=== PATIENT | male | born 1960 | race Caucasian/White ===

== ENCOUNTER 2019-11-03 16:15 | Emergency (ER) | payer BC, SELFPAY ==
[2019-11-03 16:26] VITALS: BP 144/92; PULSE 108; RESP 18; TEMP 38; O2SAT 96
--- NOTE | 2019-11-03 16:43 | ED.URI ---
HPI - URI/Sore Throat General Chief Complaint: Upper Respiratory Infection Stated Complaint: Congestion Time Seen by Provider: 11/03/19 16:43 Source: patient Mode of arrival: ambulatory Limitations: no limitations History of Present Illness HPI Narrative: The patient, who is a nonsmoker/ occ drinker, presents with history of upper respiratory Sx that began last night. Pt notes having a fever of 100.4F, nasal and sinus congestion, and ear pressure. No cough, wheeze, precordial chest pain, shortness of breath, hand or leg swelling. He states that his was Dx with influenza B x 1 week ago. He notes taking OTC medication which helped him to sleep, but his Sx are not improving. MD elicited complaint: fever (100.4F) Onset (ago): day(s) (1) Consistency: progressively worsening Context: sick contacts ( Dx with influenza B) Associated symptoms: nasal congestion and other (sinus congestion, ear pressure) Treatments prior to arrival: cold medicine (OTC) Related Data Allergies Allergy/AdvReac Type Severity Reaction Status Date / Time hydrocodone AdvReac Unknown nausea Verified 11/03/19 16:30 Review of Systems Review of Systems: Narrative: The patient has been informed that they may have pre-hypertension or Hypertension based on a BP reading in the department. I recommend that the patient call the primary care provider listed on their discharge instructions or a physician of their choice this week to arrange follow up for further evaluation of possible pre-hypertension or Hypertension General/Constitutional: Denies: weight loss Eyes: Denies: Redness,discharge Ears/Nose/Throat: Denies: Epistaxis,ear discharge Respiratory: Denies: Hemoptysis Gastrointestinal: Denies: Vomiting, Bleeding-rectal Skin: Denies: Lumps, eruption Neurologic: Denies: Focal Weakness,Sz Hematologic: Denies: Petechiae/Purpura Psychiatric: Denies: Suicidal ideation All Other Systems: Reviewed and Negative All systems reviewed & are unremarkable except as noted in HPI and below [facility] Family History Family History (Updated 11/27/14 @ 16:56 by DOCTOR UNKNOWN) Father Patient's father is Mother Patient's mother is Other Diabetes mellitus Hypertension Social History Social History Smoking status: Never smoker Second hand tobacco smoke exposure: No Alcohol intake: current Comments At time of signature, agree with nursing past medical, surgical, social and family history. There is no relevant family history pertinent to the presenting complaint. Exam Narrative: Exam Narrative: General Appearance: Well appearing, Well nourished EYE: PERRLA, Conjunctiva clear Ears: Auditory canal normal, TM normal Nose: Rhinorrhea, Mucousal erythema Mouth/Throat: MM moist, Uvula midline, Pharyngeal erythema Neck: Supple, No adenopathy Respiratory: No respiratory distress, Breath sounds equal, Clear to auscultation Cardiovascular: RRR, No JVD Musculoskeletal: Non tender, Normal strength Skin: Warm, Dry Neurological: A&O x3, CN II-XII intact Psychiatric: Normal mood, Normal affect Course Vital Signs Vital signs: Vital Signs Temperature 100.4 F H 11/03/19 16:26 Pulse Rate 108 H 11/03/19 16:26 Respiratory Rate 18 11/03/19 16:26 Blood Pressure 144/92 H 11/03/19 16:26 Pulse Oximetry 96 11/03/19 16:26 Temperature 100.4 F H 11/03/19 16:26 Pulse Rate 108 H 11/03/19 16:26 Respiratory Rate 18 11/03/19 16:26 Blood Pressure 144/92 H 11/03/19 16:26 Pulse Oximetry 96 11/03/19 16:26 MDM - URI/Sore Throat Lab Data Labs: Influenza A Screen Negative Reference Range: Negative Influenza B Screen Negative Reference Range: Negative Discharge Plan Discharge Clinical Impression: Influenza-like illness Patient Disposition: Home, Self-Care Condition: Stable Instructions: Influenza (ED) Prescriptions: New
== END 2019-11-03 16:55 | disposition home or self-care (01) ==
PROVIDERS: Emergency Provider Emergency Medicine; PCP Internal Medicine
DX: R50.9 Fever, unspecified (principal); J34.89 Other specified disorders of nose and nasal sinuses
CPT/HCPCS: 87804; 99213; G0463

== ENCOUNTER 2020-03-04 08:11 | Outpatient (CLI) | payer BC, SELFPAY ==
[2020-03-04 08:38] LABS: Basophils Percent Auto 0.5 % (0.2-1.2); Eosinophils Absolute Auto 0.2 K/mm3 (0-0.3); Eosinophils Percent Auto 2.8 % (0-4.4); Hematocrit 39.1 % (42.0-52.0); Hemoglobin 13.8 g/dL (14.0-18.0); Immature Granulocyte Absolute 0.01 K/mm3 (0.00-0.031); Immature Granulocyte Percent A 0.2 % (0-0.5); Lymphocytes Absolute Auto 1.31 K/mm3 (0.9-3.2); Lymphocytes Percent Auto 22.8 % (18.3-44.2); Mean Corpuscular HGB Conc 35.3 g/dl (32-36); Mean Corpuscular Hemoglobin 32.9 pg (26-34); Mean Corpuscular Volume 93.1 fl (80-100); Mean Platelet Volume 8.8 fl (7.4-10.4); Monocytes Absolute Auto 0.7 K/mm3 (0.1-0.6); Monocytes Percent Auto 11.7 % (2.6-8.5); Neutrophils Absolute Auto 3.6 K/mm3 (1.3-6.7); Platelet Count Result 286 k/mm3 (150-375); Red Cell Distribution Width 11.9 % (11.5-14.5); White Blood Count 5.8 K/mm3 (4.5-10.0)
[2020-03-04 08:48] LABS: Alanine Aminotransferase 22 U/L (4-50); Albumin Level 4.4 g/dL (3.5-5.1); Alkaline Phosphatase 76 U/L (38-126); Aspartate Amino Transferase 33 U/L (17-59); Bilirubin,Total 0.7 mg/dL (0.2-1.3); Blood Urea Nitrogen 7 mg/dL (9-20); Calcium 9.3 mg/dL (8.4-10.2); Carbon Dioxide 29 mmol/L (22-30); Chloride 104 mmol/L (98-107); Cholesterol 164 mg/dL (0-200); Estimated Glomerular Filt Rate > 60; Glucose 96 mg/dL (75-110); HDL Direct 53 mg/dL; Sodium 139 mmol/L (137-145); Triglycerides 70 mg/dL (<150)
[2020-03-04 08:59] LABS: LDL Cholesterol Direct 84 mg/dL
[2020-03-04 09:18] LABS: Prostate Specific Antigen 0.5 ng/mL (< OR = 4.0)
== END 2020-03-04 08:12 | disposition home or self-care (01) ==
PROVIDERS: PCP Internal Medicine; Visit Provider Internal Medicine
DX: Z00.00 Encounter for general adult medical examination without abnormal findings (principal)
CPT/HCPCS: 36415; 80053; 80061; 84153; 84443; 85025

== ENCOUNTER 2020-05-23 14:15 | Outpatient (CLI) | payer BC, SELFPAY ==
[2020-05-23 14:53] LABS: Basophils Percent Auto 0.5 % (0.2-1.2); Eosinophils Absolute Auto 0.1 K/mm3 (0-0.3); Eosinophils Percent Auto 2.2 % (0-4.4); Hematocrit 40.4 % (42.0-52.0); Hemoglobin 14.3 g/dL (14.0-18.0); Immature Granulocyte Absolute 0.02 K/mm3 (0.00-0.031); Immature Granulocyte Percent A 0.3 % (0-0.5); Lymphocytes Absolute Auto 1.54 K/mm3 (0.9-3.2); Lymphocytes Percent Auto 26.1 % (18.3-44.2); Mean Corpuscular HGB Conc 35.4 g/dl (32-36); Mean Corpuscular Hemoglobin 33.6 pg (26-34); Mean Corpuscular Volume 94.8 fl (80-100); Mean Platelet Volume 8.9 fl (7.4-10.4); Monocytes Absolute Auto 0.6 K/mm3 (0.1-0.6); Neutrophils Absolute Auto 3.6 K/mm3 (1.3-6.7); Neutrophils Percent Auto 60.9 % (45.5-73.1); Platelet Count Result 293 k/mm3 (150-375); Red Blood Count 4.26 M/mm3 (4.6-6.20); Red Cell Distribution Width 11.7 % (11.5-14.5); White Blood Count 5.9 K/mm3 (4.5-10.0)
[2020-05-23 15:39] LABS: Iron 106 ug/dL (49-181)
[2020-05-23 15:49] LABS: Percent Iron Saturation 34 % (20-50)
[2020-05-23 16:21] LABS: Folic Acid > 20.0 ng/mL (2.76->20); Vitamin B12 > 1000.0 pg/mL (239-931)
== END 2020-05-23 14:16 | disposition home or self-care (01) ==
PROVIDERS: PCP Internal Medicine; Visit Provider Internal Medicine
DX: D64.9 Anemia, unspecified (principal)
CPT/HCPCS: 36415; 82607; 82746; 83540; 83550; 85025

== ENCOUNTER 2020-06-03 08:16 | Outpatient (CLI) | payer BC, SELFPAY ==
--- NOTE | 2020-06-30 09:14 | WPDHOMESLEEP ---
Sleep Study - Home Unattended Date of Study: 06/03/20 Ordering Provider: Fernanda Rodriguez MD Interpreting Physician: Fernanda Rodriguez MD Home Sleep Study Type: Apnea Link Air Height: 1.78 m Weight: 76.657 kg Body Mass Index: 24.2 [place]: 0 Reason for Sleep Study History of obstructive sleep apnea syndrome on CPAP, weight loss, re-evaluation Sleep History Serafin Bolton is a 60 year old man with a history of loud snoring. He has been treated for sleep apnea for 15 years. For the first 5 or 6 years, he used an oral appliance. Since then, he has been on CPAP. Since August of 2019 he has lost 50 lb. Since the weight loss, his APAP does not work as effectively. He is having difficulty with the head strap which only works well for 1 for 2 weeks. His mouth is opening at night and the chinstrap is somehow making things worse. He has chronic rhinitis. He is on an auto PAP 7-15 cm with a median pressure of 8 cm of water pressure. He wants to be re-evaluated and considered for an oral appliance again. He constantly snores and is constantly loud enough that others complain about it. He occasionally has trouble sleeping with a cold. He rarely gasps for breath at night. He occasionally has breathing problems at night observed by others. He does not sweat excessively at night, does not notice his heart pounding or beating irregularly at night, does not fall asleep during the day, does not fall asleep involuntarily or while driving. He does not fall asleep during physical effort. He does not have loss of muscle tone was strong emotion, does not have daytime difficulties due to excessive sleepiness, does not feel paralyzed on waking or falling asleep and does not have vivid dreamlike scenes upon awakening or falling asleep. He is never afraid to go to sleep. He does not have nightmares. He occasionally remembers his dreams. He rarely has racing thoughts. He does not have feelings of sadness, depression or anxiety. He denies muscular tension. He does not notice parts of his body jerking. He does not kick at night. He does not have crawly aching feelings in his legs and does not have leg pain at night. He does not have morning jaw pain and does not grind his teeth during sleep. He does not have pain during the day or is awakened by pain at night. He does not wake up feeling stiff in the morning with sore muscles. He has headaches. Normal bedtime is between 10:00 p.m. to 10:30 p.m., midnight on weekends, falling asleep quickly waking at 5:30 a.m. without using an alarm. He wakes once at night to urinate, falls asleep within 2 minutes when he returns to bed. He does not have problems with leg movements or irritable feelings in his legs at night. He is not always refreshed in the morning. He drinks 2 pots of coffee a day and has done so for decades. He does not nap in the daytime. A short nap is not refreshing. He is currently working from home, previously traveled around the world for his and job. [facility] Past Medical History Medical History CRISTIAN on CPAP Surgical History Surgical History History of carpal tunnel repair Family History Family History Father Patient's father is Mother Patient's mother is Other Diabetes mellitus Hypertension Social History Social History Smoking status: Never smoker Second hand tobacco smoke exposure: No Alcohol intake: current Substance use: never Medications Home Medications Medication Instructions Recorded Confirmed Type No Home Medications 02/27/20 02/27/20 History Sleep Procedure This test was performed using 4 channel monitoring including respiratory effort channel snoring channel heart rate channel and oxygen satura
[2020-06-30 09:18] VITALS: BMI 24.2
== END 2020-06-03 08:17 | disposition home or self-care (01) ==
LOC: ANHCSM 08:18
PROVIDERS: PCP Internal Medicine; Visit Provider Internal Medicine Critical Care Medicine
DX: G47.33 Obstructive sleep apnea (adult) (pediatric) (principal); Z99.89 Dependence on other enabling machines and devices
CPT/HCPCS: 95806

== ENCOUNTER 2022-05-05 09:28 | Outpatient (CLI) | payer BC, SELFPAY ==
[2022-05-05 09:43] LABS: Basophils Percent Auto 0.6 % (0.2-1.2); Eosinophils Absolute Auto 0.2 K/mm3 (0-0.3); Eosinophils Percent Auto 2.8 % (0-4.4); Hematocrit 43.2 % (42.0-52.0); Hemoglobin 15.2 g/dL (14.0-18.0); Immature Granulocyte Absolute 0.01 K/mm3 (0.00-0.031); Immature Granulocyte Percent A 0.2 % (0-0.5); Lymphocytes Absolute Auto 1.84 K/mm3 (0.9-3.2); Lymphocytes Percent Auto 29.8 % (18.3-44.2); Mean Corpuscular HGB Conc 35.2 g/dl (32-36); Mean Corpuscular Volume 90.9 fl (80-100); Mean Platelet Volume 8.5 fl (7.4-10.4); Monocytes Absolute Auto 0.7 K/mm3 (0.1-0.6); Monocytes Percent Auto 11.5 % (2.6-8.5); Neutrophils Absolute Auto 3.4 K/mm3 (1.3-6.7); Neutrophils Percent Auto 55.1 % (45.5-73.1); Platelet Count Result 320 k/mm3 (150-375); Red Blood Count 4.75 M/mm3 (4.6-6.20); Red Cell Distribution Width 11.6 % (11.5-14.5); White Blood Count 6.2 K/mm3 (4.5-10.0)
[2022-05-05 10:05] LABS: Alanine Aminotransferase 40 U/L (6-50); Albumin Level 4.6 g/dL (3.5-5.1); Alkaline Phosphatase 57 U/L (38-126); Anion Gap 11 mmol/L (8-16); Aspartate Amino Transferase 41 U/L (17-59); Bilirubin,Total 1.1 mg/dL (0.2-1.3); Blood Urea Nitrogen 11 mg/dL (9-20); Calcium 9.2 mg/dL (8.4-10.2); Carbon Dioxide 24 mmol/L (22-30); Chloride 104 mmol/L (98-107); Cholesterol 226 mg/dL (0-200); Estimated Glomerular Filt Rate > 60; Glucose 107 mg/dL (65-110); HDL Direct 38 mg/dL; Potassium 3.9 mmol/L (3.4-5.0); Sodium 139 mmol/L (137-145); Triglycerides 140 mg/dL (<150)
[2022-05-05 10:16] LABS: LDL Cholesterol Direct 131 mg/dL
[2022-05-05 10:31] LABS: Prostate Specific Antigen 0.9 ng/mL (< OR = 4.0)
[2022-05-05 11:16] LABS: Folic Acid > 20.0 ng/mL (2.76->20); Vitamin B12 > 1000.0 pg/mL (239-931)
== END 2022-05-05 09:29 | disposition home or self-care (01) ==
PROVIDERS: PCP Internal Medicine; Visit Provider Internal Medicine
DX: R74.8 Abnormal levels of other serum enzymes (principal); R53.83 Other fatigue
CPT/HCPCS: 36415; 80053; 80061; 82607; 82746; 84153; 84443; 85025; G0103

== ENCOUNTER 2022-08-10 08:22 | Outpatient (CLI) | payer BC, SELFPAY ==
[2022-08-14 14:02] LABS: Prolactin 4.2 ng/mL (***)
[2022-08-20 15:17] LABS: Testosterone Free 81.5 pg/mL (35.0-155.0); Testosterone Total 586 ng/dL (250-1100)
== END 2022-08-10 08:23 | disposition home or self-care (01) ==
LOC: ANHLAB 08:23
PROVIDERS: PCP Internal Medicine; Visit Provider Internal Medicine
DX: N52.9 Male erectile dysfunction, unspecified (principal)
CPT/HCPCS: 36415; 84146; 84402; 84403

== ENCOUNTER 2023-11-23 17:19 | Outpatient (CLI) | payer BC, SELFPAY ==
--- NOTE | ~2023-11-23 | XR_ITS ---
EXAMINATION: XR shoulder RT min 2V DATE: 11/23/2023 17:49 INDICATION: Right shoulder pain and limited range of motion TECHNIQUE: AP internally and externally rotated, AP oblique externally rotated and transscapular Y vi ews of the right shoulder were obtained. COMPARISON: None FINDINGS: Normal alignment. No fracture. Mild right glenohumeral and acromioclavicular osteoarthritis. There i s a poorly defined lucent lesion in the proximal right humeral diaphysis with suggestion of possible endosteal scalloping on the internally rotated projection. Mild cystic change at the right greater tu berosity which can be seen in the setting of rotator cuff disease. Soft tissues are unremarkable. Vis ualized portion of the lungs are clear. IMPRESSION: 1. Mild right glenohumeral and acromioclavicular osteoarthritis. No acute osseous abnormalities. 2. Possible lytic lesion at the proximal right humeral diaphysis. Differential would include malignan cy/metastatic disease or artifactual appearance as by the osteopenia. Consider further evaluation wit h either CT or pre and postcontrast MRI. Reviewed, dictated and finalized at location A. IMPRESSION: 1. Mild right glenohumeral and acromioclavicular osteoarthritis. No acute osseo us abnormalities. 2. Possible lytic lesion at the proximal right humeral diaphysis. Differential would include malignancy/metastatic disease or artifactual appearance as by the osteopenia. Consider further evaluation with either CT or pre and postcontrast MRI.
== END 2023-11-23 17:20 | disposition home or self-care (01) ==
LOC: ANHIMG 17:22
PROVIDERS: PCP Internal Medicine; Visit Provider Internal Medicine
DX: M19.011 Primary osteoarthritis, right shoulder (principal)
CPT/HCPCS: 73030

== ENCOUNTER 2023-12-15 16:01 | Outpatient (CLI) | payer BC, SELFPAY ==
--- NOTE | ~2023-12-15 | CT_ITS ---
EXAMINATION: CT shoulder RT wo con DATE: 12/15/2023 16:24 INDICATION: Possible lytic lesion at the proximal right humeral diaphysis on prior radiographs TECHNIQUE: High resolution computed tomography (CT) of the right shoulder was performed without intra venous contrast. Additional sagittal and coronal reconstructions were performed. Automated exposure c ontrol and iterative reconstruction technique were employed. The dose-length product was 318.35 mGy-c m. COMPARISON: Right shoulder radiographs dated 11/23/2023 FINDINGS: Bone alignment is normal. No fracture. There is mild right glenohumeral and acromioclavicular osteoar thritis. Fluid is seen in the deep subscapular recess. Otherwise physiologic amount of fluid in the g lenohumeral joint space. There is mild cystic change along the superior facet of the greater tuberosi ty which can be seen in setting of chronic rotator cuff disease. The region of relative cortical thin tavo along the anteromedial cortex of the proximal humeral diaphysis is identified but appears to res ult more from the region of sparing of the cortical thinning at the sites of muscular insertion as op posed to a discrete region of lytic endosteal scalloping. There is no evident underlying increased de nsity of the normal low attenuation fatty marrow to suggest a pathologic marrow replacing process. Mi ld dependent atelectasis in the visualized right lung. No pathologically enlarged right axillary, rig ht hilar or right-sided mediastinal lymphadenopathy. IMPRESSION: 1. The region of suspected potential endosteal scalloping along the proximal right humeral diaphysis appears to represent artifact of relative sparing of adjacent physiologic cortical thickening at the sites of muscular attachment. No increased marrow density to suggest malignancy/metastatic disease or other underlying pathologic marrow replacing process. 2. Mild right glenohumeral and acromioclavicular osteoarthritis. 3. Mild cystic change along the superior facet of the greater tuberosity which can be seen in the set ting of chronic supraspinatus tendon disease. Reviewed, dictated and finalized at location A. IMPRESSION: 1. The region of suspected potential endosteal scalloping along the proximal ri ght humeral diaphysis appears to represent artifact of relative sparing of dorota cent physiologic cortical thickening at the sites of muscular attachment. No in creased marrow density to suggest malignancy/metastatic disease or other underl daniele pathologic marrow replacing process. 2. Mild right glenohumeral and acromioclavicular osteoarthritis. 3. Mild cystic change along the superior facet of the greater tuberosity which can be seen in the setting of chronic supraspinatus tendon disease.
== END 2023-12-15 16:02 | disposition home or self-care (01) ==
LOC: ANHIMG 16:03
PROVIDERS: PCP Internal Medicine; Visit Provider Internal Medicine
DX: R93.89 Abnormal findings on diagnostic imaging of other specified body structures (principal); M19.011 Primary osteoarthritis, right shoulder
CPT/HCPCS: 73200

== ENCOUNTER 2024-03-14 10:12 | Outpatient (CLI) | payer BC, SELFPAY ==
[2024-03-14 11:02] LABS: Basophils Percent Auto 0.5 % (0.2-1.2); Eosinophils Absolute Auto 0.1 K/mm3 (0-0.3); Hematocrit 43.9 % (42.0-52.0); Hemoglobin 15.6 g/dL (14.0-18.0); Immature Granulocyte Absolute 0.01 K/mm3 (0.00-0.031); Immature Granulocyte Percent A 0.2 % (0-0.5); Lymphocytes Absolute Auto 1.71 K/mm3 (0.9-3.2); Lymphocytes Percent Auto 26.1 % (18.3-44.2); Mean Corpuscular HGB Conc 35.5 g/dl (32-36); Mean Corpuscular Hemoglobin 33.1 pg (26-34); Mean Platelet Volume 8.7 fl (7.4-10.4); Monocytes Absolute Auto 0.7 K/mm3 (0.1-0.6); Monocytes Percent Auto 10.6 % (2.6-8.5); Neutrophils Percent Auto 60.6 % (45.5-73.1); Platelet Count Result 302 k/mm3 (150-375); Red Blood Count 4.72 M/mm3 (4.6-6.20); Red Cell Distribution Width 11.8 % (11.5-14.5); White Blood Count 6.5 K/mm3 (4.5-10.0)
[2024-03-14 11:19] LABS: Alanine Aminotransferase 44 U/L (6-50); Albumin Level 4.8 g/dL (3.5-5.1); Alkaline Phosphatase 57 U/L (38-126); Anion Gap 9 mmol/L (4-12); Aspartate Amino Transferase 38 U/L (17-59); Bilirubin,Total 0.9 mg/dL (0.2-1.3); Blood Urea Nitrogen 12 mg/dL (9-20); Calcium 9.2 mg/dL (8.4-10.2); Carbon Dioxide 26 mmol/L (22-30); Chloride 102 mmol/L (98-107); Cholesterol 228 mg/dL (0-200); Estimated Glomerular Filt Rate > 60; Glucose 111 mg/dL (65-110); HDL Direct 40 mg/dL; Potassium 4.3 mmol/L (3.4-5.0); Sodium 137 mmol/L (137-145); Triglycerides 164 mg/dL (<150)
[2024-03-14 11:30] LABS: LDL Cholesterol Direct 139 mg/dL
[2024-03-14 12:02] LABS: Prostate Specific Antigen 0.5 ng/mL (< OR = 4.0)
== END 2024-03-14 10:13 | disposition home or self-care (01) ==
PROVIDERS: PCP Internal Medicine; Visit Provider Internal Medicine
DX: Z00.00 Encounter for general adult medical examination without abnormal findings (principal); Z12.5 Encounter for screening for malignant neoplasm of prostate
CPT/HCPCS: 36415; 80053; 80061; 84153; 84443; 85025; G0103

== ENCOUNTER 2024-11-15 13:29 | Outpatient (CLI) | payer BC, SELFPAY ==
--- NOTE | ~2024-11-15 | US_ITS ---
EXAMINATION: US arterial duplex E DATE: 11/15/2024 14:17 INDICATION: Essential primary hypertension with discordant brachial artery pressures reportedly great er on the right. TECHNIQUE: Multiple grayscale and Doppler ultrasound images of the arteries of the arteries of the bi lateral upper limbs were obtained. COMPARISON: None FINDINGS: Normal triphasic waveforms with brisk systolic upstrokes throughout the right common carotid, subclav katy, axillary, brachial, radial and ulnar arteries. Normal triphasic waveforms with brisk systolic up strokes throughout the left common carotid, subclavian, axillary, brachial, radial and ulnar arteries . No evident hematoma significant plaque identified in the visualized portion of the arteries in eith er upper limb. IMPRESSION: 1. Normal triphasic waveforms with brisk systolic upstrokes and without evident hemodynamically signi ficant plaque in the arteries of either upper limb. Reviewed, dictated and finalized at location B. IMPRESSION: 1. Normal triphasic waveforms with brisk systolic upstrokes and without evident hemodynamically significant plaque in the arteries of either upper limb.
--- OUTSIDE RECORDS SUMMARY | 2024-11-15 14:20 | XMS_ITS | Referral Summary ---
Author Organization [facility] [address] Address [address] [place] [address] Care Team Providers Care Data Input Clerk Name Role Phone Martin Henriquez MD Primary Care Provider [phone] Encounters Date Type Department Care Team Description 10/08/2024 Documentation [facility] Otolaryngology [address] [facility] [address] [place] [address] Anastacia Washburn Au.D. 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 Gender Identity Not on file Sexual Orientation Not on file Last Filed Vital Signs Vital Sign Reading Time Taken Comments Blood Pressure - - Pulse - - Temperature - - Respiratory Rate - - Oxygen Saturation - - Inhaled Oxygen Concentration - - Weight 88 kg (194 lb 0.1 oz) 09/21/2017 11:14 AM REPAIR DEPARTMENT MANAGER Height 177.8 cm (5' 10 ) 09/21/2017 11:14 AM REPAIR DEPARTMENT MANAGER Body Mass Index 27.84 09/21/2017 11:14 AM REPAIR DEPARTMENT MANAGER Plan of Treatment Not on file Insurance [employer] OOS Care Teams Data Input Clerk Relationship Specialty Start Date End Date Martin Henriquez MD [address] [place] [address] PCP - General 12/10/16
--- OUTSIDE RECORDS SUMMARY | 2024-11-15 14:20 | XMS_ITS | Encounter Summary ---
Author Organization [facility] Address [address] [place] [address] Care Team Providers Care Marble Setter Helper Name Role Phone Martin Henriquez Primary Care Provider [phone] Keyon Curtis MD Unavailable [phone] Encounter Details Date Type Department Care Team (Late st Contact Info) Description 04/11/2024 Lab Requisition [facility] - DermPath Lab [address] [facility] [facility] [place] [id number] Keyon Curtis MD [address] [place] [address] Social History Tobacco Use Types Packs/Day Years Used Date Smoking Tobacco: Never Smokeless Tobacco: Never Alcohol Use Standard Drinks/Week Comments Yes 0 (1 standard drink = 0.6 oz pur e alcohol) 1-2 beers or glass of wine occ Sex and Gender Information Value Date Recorded Sex Assigned at Not on file Gender Identity Not on file Sexual Orientation Not on file documented as of this encounter Plan of Treatment Not on file documented as of this encounter Procedures Procedure Name Priority Date/Time Associated Diagnosis Comments DERMATOPATHOLOGY Routine 04/10/2024 3:33 AM CDT documented in this encounter Results * DERMATOPATHOLOGY (04/10/2024 3:33 AM CDT) Case Report Dermatopathology Report Case: [id number] Authorizing Provider: Keyon Curtis MD Collected: 04/10/2024 03:33 AM Ordering Location: [facility] - Received: 04/11/2024 01:55 PM DermPath Lab Pathologist: Misael Gibson MD Specimen: Skin, right ala 2:07 PM CDT DERMATOPATHOLOGY LABORATORY Final Diagnosis Specimen A. SKIN, right ala: BASAL CELL CARCINOMA (C44.311) (see microscopic description and comment) 2:07 PM CDT DERMATOPATHOLOGY LABORATORY Clinical History R/O BCC recurrence 2:07 PM CDT DERMATOPATHOLOGY LABORATORY Gross Description Specimen A: Received is one formalin filled container labeled with the patient's name and designated right ala. The specimen consists of a shave biopsy measuring 4x4x1 mm. Jar 0. 2:07 PM CDT DERMATOPATHOLOGY LABORATORY Microscopic Description Specimen A. SKIN, right ala: The specimen consists of aggregates of basaloid cells, located within the superficial dermis, with high nuclear to cytoplasmic ratio and peripheral palisading. COMMENT: The small size of the specimen limits subtyping of the lesion. 2:07 PM CDT DERMATOPATHOLOGY LABORATORY Disclaimer An external and internal positive and negative controls are appropriate for the histochemical, immunohistochemical and immunofluorescence stain(s) in this case (if any), except where stated explicitly. The performance characteristics of the stain(s) cited in this report were developed and its performance characteristic determined by the Dermatopathology Laboratory at [facility], directed by Dr. Ryanne Gibson. These tests need not be, and therefore are not, approved by the [place] Food and Drug Administration. The tests are used for clinical purposes. Billing Codes Specimen Charges Stain Charges 05017 1 2:07 PM CDT DERMATOPATHOLOGY LABORATORY Embedded Images 2:07 PM CDT DERMATOPATHOLOGY LABORATORY Pathology/Cytolo gy TISSUE SPECIMEN FROM SKIN / Unknown 04/10/2024 3:33 AM CDT 04/11/2024 1:55 PM CDT Keyon Curtis MD LAB - PATHOLOGY/CYTO LOGY ORDERABLES DERMATOPATHOLOGY LABORATORY [facility] - Department of Dermatology [facility] [address] [facility] [phone] documented in this encounter Visit Diagnoses Not on filedocumented in this encounter Care Teams Marble Setter Helper Relationship Specialty Start Date End Date Martin Henriquez DO [address] [place], [place] [id number] PCP - General 03/13/09 Keyon Curtis MD [address] [place] [address] Dermatology 04/18/24 documented as of this encounter
--- OUTSIDE RECORDS SUMMARY | 2024-11-15 14:20 | XMS_ITS | Continuity of Care Document ---
Author Organization [facility] Address [address] [place] [address] Insurance Providers Payer Plan Claims Address Claims Phone Policy Number Group Number Relation Employer Guarantor Name Guarantor Guarantor Address Guarantor Phone Sridhar Douglas [address], [place] [address] tel:[phone] Self Serafin Mollet 1960 [id number] Sridhar Douglas [address], [place] [address] tel:[phone] Self Serafin Mollet 1960 [id number] SRIDHAR Douglas tel:[phone] [id number] Self Serafin Mollet [id number] Problems Condition ICD9 code ICD10 code SNOMED code Start Date End Date S tatus Encounter for screening for other metabolic disorders Z13.228 Pain in unspecified shoulder M25.519 Final Abnormal findings on diagnostic imaging of other specified body structures R93.89 Admitting Abnormal findings on diagnostic imaging of other specified body structures R93.89 Final Encounter for general adult medical examination without abnormal findings Z00.00 Admitti ng Encounter for general adult medical examination without abnormal findings Z00.00 Final Results No Results Allergies, adverse reactions, alerts No known allergies and adverse reactions Medications No administered medications reported Vital Signs No vital signs reported Social History No smoking Hx information available
--- OUTSIDE RECORDS SUMMARY | 2024-11-15 14:20 | XMS_ITS | Clinical Summary ---
Author Organization [facility] [address] Address [address] [place] [address] Care Team Providers Care Multimedia Designer Name Role Phone Martin Henriquez MD Primary Care Provider [phone] Allergies No known active allergies Medications No known medications Active Problems Problem Noted Date Diagnosed Date Sensorineural hearing loss (SNHL) of both ears 0 05/19/2022 Encounters Date Type Department Care Team Description 10/08/2024 Documentation [facility] Otolaryngology [address] [facility] [address] [place] [address] Anastacia Washburn Au.D. from Last 3 Months Social History Tobacco Use Types Packs/Day Years Used Date Smoking Tobacco: Never Personal Safety Answer Date Recorded Getting School Help Needed Not on file 09/01 Sex and Gender Information Value Date Recorded Sex Assigned at Not on file Legal Sex Male 4:46 AM CUT OFF MAN Gender Identity Not on file Sexual Orientation Not on file Obstetrics History Last Filed Vital Signs Vital Sign Reading Time Taken Comments Blood Pressure - - Pulse - - Temperature - - Respiratory Rate - - Oxygen Saturation - - Inhaled Oxygen Concentration - - Weight 88 kg (194 lb 0.1 oz) 09/21/2017 11:14 AM CUT OFF MAN Height 177.8 cm (5' 10 ) 09/21/2017 11:14 AM CUT OFF MAN Body Mass Index 27.84 09/21/2017 11:14 AM CUT OFF MAN Plan of Treatment Not on file Insurance [employer] OOS Care Teams Multimedia Designer Relationship Specialty Start Date End Date Martin Henriquez MD [address] [place] [address] PCP - General 12/10/16
--- OUTSIDE RECORDS SUMMARY | 2024-11-15 14:20 | XMS_ITS | Clinical Summary ---
Author Organization [facility] Address [address] [facility] [place] [address] Care Team Providers Care Winch Driver Name Role Phone FlorenceLobitoMartinnuno Escobar DO Primary Care Provider [phone] Keyon Curtis MD Unavailable [phone] Source Comments [facility],non-owned Affiliates and Associated Physician Practices is amultiple site organization consisting of ambulatory clinics and hospital sitesin [place], [place], [place] and [place]. This disclosure is being madepursuant to the Care Everywhere program and may not contain all information available regarding this patient. Last updated 18.[facility] [employer] Allergies No known active allergies Medications * Be aware that medications may not be up to date on this document. Alwaysverify current medications with the patient. Medication Sig Dispensed Refills Start Date End Date Status Fluticasone Propionate (FLONASE NA) Active amLODIPine (Norvasc) 10 MG tablet Take 1 (one) tablet by mouth once daily Active losartan (Cozaar) 50 MG tablet 05/10/2024 Active Active Problems Problem Noted Date Diagnosed Date Encounter for screening for other metabolic diso rders 05/07/2024 Abnormal findings on diagnos tic imaging of other specified body structures 12/15/2023 Pain in unspecified shoulder 11/23/2023 Sensorineural hearing loss (SNHL) of both ears 0 05/19/2022 Left carpal tunnel syndrome Immunizations Name Administration Dates Next Due INFLUENZA VACCINE 05/27/2019 Family History Medical History Relation Name Comments Cancer - Skin, Non Melanoma Father Relation Name Status Comments Father Social History Tobacco Use Types Packs/Day Years [...] Sign Reading Time Taken Comments Blood Pressure 132/88 05/11/2022 7:37 AM CDT Pulse 76 05/11/2022 7:37 AM CDT Temperature 36 C (96.8 F) 10/03/2019 8:43 AM ACTION INSTALLER Respiratory Rate 22 05/11/2019 10:30 AM CDT Oxygen Saturation 97% 10/03/2019 8:43 AM ACTION INSTALLER Inhaled Oxygen Concentration - - Weight 96.6 kg (213 lb) 05/11/2022 7:37 AM CDT Height 177.8 cm (5' 10 ) 05/11/2022 7:37 AM CDT Body Mass Index 30.56 05/11/2022 7:37 AM CDT Plan of Treatment Health Maintenance Due Date Last Done Comments COLOGUARD (AGES 45-75) - COL ON CA SCREENING 1958 COLON MONITORING 1958 COLONOSCOPY - COLON CA SCREENING 1958 CT COLONOGRAPHY - COLON CA SCREENING 1958 Colorectal Cancer Screening 1958 FIT - COLON CA SCREENING 1958 FLEX SIG - COLON CA SCREENING 1958 LIPID TESTING 1958 HEPATITIS C SCREENING 05/15/1976 DTAP/TDAP/TD VACCINES (1 - Tdap) 1977 PNEUMOCOCCAL VACCINE 50+ (1 of 1 - PCV) 2008 ZOSTER VACCINE (1 of 2) 2008 COVID-19 VACCINE ( - 2023-2 5 season) 2024 INFLUENZA VACCINE (#1) 2024 05/27/2019 DEPRESSION SCREENING 08/22/2024 Respiratory Syncytial Virus (RSV) Vaccine Pt: or over 60 yrs (1 - 1-dose 75+ series) 2033 HEPATITIS B VACCINE Aged Out No longe r eligible based on patient's age to complete this topic HIB VACCINE Aged Out No longer eligi ble based on patient's age to complete this topic HPV VACCINE Aged Out No longer eligi ble based on patient's age to complete this topic MENINGOCOCCAL (Group B) VACC INE SHARED DECISION-MAKING Aged Out No longer eligibl e based on patient's age to complete this topic MENINGOCOCCAL GROUPS A/C/Y/W VACCINE Aged Out No longer eligible b ased on patient's age to complete this topic Care Teams Winch Driver Relationship Specialty Start Date End Date Martin Henriquez DO [address] [facility] [address] [place] [address] PCP - General 03/13/09 Keyon Curtis MD [address] [place] [address] Dermatology 04/18/24
--- OUTSIDE RECORDS SUMMARY | 2024-11-15 14:20 | XMS_ITS | Encounter Summary ---
Author Organization [facility] Address [address] [facility] [address] Care Team Providers Care Deputy Fire Marshal Name Role Phone Martin Henriquez Primary Care Provider [phone] Keyon Curtis MD Unavailable Encounter Details Date Type Department Care Team (Late st Contact Info) Description 01/27/2022 Lab Requisition [facility] DermPath Lab [address] [facility] [place] [id number] Keyon Curtis MD [address] [place] [address] Social History Tobacco Use Types [...] Priority Date/Time Associated Diagnosis Comments DERMATOPATHOLOGY Routine 01/26/2022 3:33 AM CDT documented in this encounter Results * DERMATOPATHOLOGY (01/26/2022 3:33 AM CDT) Case Report Dermatopathology Report Case: [id number] Authorizing Provider: Keyon Curtis MD Collected: 01/26/2022 03:33 AM Ordering Location: [facility] DermPath Lab Received: 01/27/2022 11:41 AM Pathologist: Tracy Griffin MD Specimen: Skin, right ala rim 2 3:35 PM CDT DERMATOPATHOLOGY LABORATORY Final Diagnosis Specimen A. SKIN, right ala rim: BASAL CELL CARCINOMA, NODULAR TYPE (C44.311) 2 3:35 PM CDT DERMATOPATHOLOGY LABORATORY Clinical History R/O BCC 2 3:35 PM CDT DERMATOPATHOLOGY LABORATORY Gross Description Specimen A: Received is one formalin filled container labeled with the patient's name and designated right ala rim. The specimen consists of a shave biopsy measuring [id number]. Jar 0. 2 3:35 PM CDT DERMATOPATHOLOGY LABORATORY Microscopic Description Specimen A. SKIN, right ala rim: Within the dermis there are aggregates of basaloid cells with a high nuclear to cytoplasmic ratio and peripheral palisading. 2 3:35 PM CDT DERMATOPATHOLOGY LABORATORY Disclaimer An external and internal positive and negative controls are appropriate for the histochemical, immunohistochemical and immunofluorescence stain(s) in this case (if any), except where stated explicitly. The performance characteristics of the stain(s) cited in this report were developed and its performance characteristic determined by the Dermatopathology Laboratory at [facility], directed by Dr. Ryanne Gibson. These tests need not be, and therefore are not, approved by the [place] Food and Drug Administration. The tests are used for clinical purposes. Billing Codes Specimen Charges Stain Charges 52174 1 2 3:35 PM CDT DERMATOPATHOLOGY LABORATORY Embedded Images 2 3:35 PM CDT DERMATOPATHOLOGY LABORATORY Pathology/Cytolo gy TISSUE SPECIMEN FROM SKIN / Unknown 01/26/2022 3:33 AM CDT 01/27/2022 11:41 AM CDT Keyon Curtis MD LAB - PATHOLOGY/CYTO LOGY ORDERABLES DERMATOPATHOLOGY LABORATORY [facility] - Department of Dermatology [address], [address] [phone] documented in this encounter Visit Diagnoses Not on filedocumented in this encounter Care Teams Deputy Fire Marshal Relationship Specialty Start Date End Date Martin Henriquez DO [address] [facility] [address] [place], [place] [id number] PCP - General 03/13/09 Keyon Curtis MD [address] [place] [address] Dermatology 04/18/24 documented as of this encounter
--- OUTSIDE RECORDS SUMMARY | 2024-11-15 14:20 | XMS_ITS | Clinical Summary ---
Author Organization [facility] Address [address], [address] [address] Phone Care Team Providers Care Airplane Patrol Pilot Name Role Phone Martin Henriquez DO Primary Care Provider Talon Talbert DO Unavailable [phone] Social History Tobacco Use Types Packs/Day Years Used Date Smoking Tobacco: Never Assessed Sex and Gender Information Value Date Recorded Sex Assigned at Not on file Legal Sex Male 9:55 AM CDT Gender Identity Not on file Sexual Orientation Not on file Plan of Treatment Health Maintenance Due Date Last Done Comments Hepatitis C Virus (HCV) Screening 1960 TdaP Immunization 1958 Cologuard 2008 Immunochemical Fecal Occult Blood 2008 Pneumococcal Immunization (5 0+ years) (1 of 1 - PCV) 2008 Zoster Immunization (1 of 2) 2008 PSA Discussion 2013 Influenza Immunization (#1) 2024 SARS-COV-2 Immunization ( - season) 2024 Colonoscopy 05/03/2029 05/03/2019 Colorectal Cancer Screening 05/03/2029 Respiratory Syncytial Virus (RSV) Immunization (Adult) (1 - 1-dose 75+ series) 2033 05/03/2019 Hepatitis B Immunization Aged Out No longer eligible based on patient's age to complete this topic Meningococcal Immunization (ACWY) Aged Out No longer eligible based on patient's age to complete this topic Rotavirus Immunization Aged Out No lo nger eligible based on patient's age to complete this topic Procedures Procedure Name Priority Date/Time Associated Diagnosis Comments COLONOSCOPY Routine 05/03/2019 from Last 3 Months or Most Recently Relevant to Health Maintenance Results * COLONOSCOPY (05/03/2019) Talon Talbert DO PROCEDURE/MINOR SURGICAL ORDERA BLES Final Result from Last 3 Months or Most Recently Relevant to Health Maintenance Insurance [employer] Care Teams Airplane Patrol Pilot Relationship Specialty Start Date End Date Martin Henriquez DO [address] [place] [address] PCP - General Internal Medicine 05/08/19 Talon Talbert DO [address] [place] [address] Gastroenterology 05/08/19
== END 2024-11-15 13:30 | disposition home or self-care (01) ==
PROVIDERS: PCP Internal Medicine; Visit Provider Internal Medicine
DX: I10 Essential (primary) hypertension (principal)
CPT/HCPCS: 93930

== ENCOUNTER 2025-07-15 10:40 | Outpatient (CLI) | payer MEDICARE, SELFPAY ==
[2025-07-15 11:07] LABS: Hematocrit 41.9 % (42.0-52.0); Hemoglobin 14.6 g/dL (14.0-18.0); Immature Granulocyte Percent A 0.2 % (0-0.5); Lymphocytes Absolute Auto 1.87 K/mm3 (0.9-3.2); Mean Corpuscular HGB Conc 34.8 g/dl (32-36); Mean Corpuscular Hemoglobin 32.5 pg (26-34); Mean Corpuscular Volume 93.3 fl (80-100); Nucleated Red Blood Cells Absolute Auto 0.000 K/mm3 (0.0-0.012); Nucleated Red Blood Cells Perc 0.0 % (0.0-0.2); Platelet Count Result 289 k/mm3 (150-375); Red Blood Count 4.49 M/mm3 (4.6-6.20); White Blood Count 6.4 K/mm3 (4.5-10.0)
[2025-07-15 11:29] LABS: Alanine Aminotransferase 33 U/L (6-50); Albumin Level 4.4 g/dL (3.5-5.1); Alkaline Phosphatase 64 U/L (38-126); Anion Gap 8 mmol/L (4-12); Aspartate Amino Transferase 32 U/L (17-59); Bilirubin,Total 0.8 mg/dL (0.2-1.3); Blood Urea Nitrogen 12 mg/dL (9-20); Calcium 9.4 mg/dL (8.4-10.2); Carbon Dioxide 24 mmol/L (22-30); Chloride 104 mmol/L (98-107); Cholesterol 228 mg/dL (0-200); Estimated Glomerular Filt Rate > 60; Glucose 112 mg/dL (65-110); HDL Direct 39 mg/dL; Potassium 4.2 mmol/L (3.4-5.0); Sodium 136 mmol/L (137-145); Total Protein 7.4 g/dL (6.3-8.2); Triglycerides 188 mg/dL (<150)
[2025-07-15 12:05] LABS: Prostate Specific Antigen 0.6 ng/mL (< OR = 4.0)
--- OUTSIDE RECORDS SUMMARY | 2025-07-15 12:38 | XMS_ITS | Clinical Summary ---
Author Organization [facility] Address [address], [address] [address] Phone Care Team Providers Care Livestock Laborer Name Role Phone Martin Henriquez DO Primary Care Provider Talon Talbert DO Unavailable [phone] Social History Tobacco Use Types Packs/Day Years Used Date Smoking Tobacco: Never Assessed Sex and Gender Information Value Date Recorded Sex Assigned at Not on file Legal Sex Male 9:55 AM CDT Gender Identity Not on file Sexual Orientation Not on file Plan of Treatment Health Maintenance Due Date Last Done Comments Hepatitis C Virus (HCV) Screening 1960 TdaP Immunization 1958 Cologuard 2003 Immunochemical Fecal Occult Blood 2003 Pneumococcal Immunization (5 0+ years) (1 of 1 - PCV) 2008 Zoster Immunization (1 of 2) 2008 Influenza Immunization (#1) 2025 SARS-COV-2 Immunization ( - season) 2025 Colonoscopy 05/03/2029 05/03/2019 Colorectal Cancer Screening 05/03/2029 Respiratory Syncytial Virus (RSV) Immunization (Adult) (1 - 1-dose 75+ series) 2033 Hepatitis B Immunization Aged Out No longer eligible based on patient's age to complete this topic Human Papillomavirus (HPV) Immunization Aged Out No longer eligible b ased [...] Most Recently Relevant to Health Maintenance Insurance [facility] Care Teams Livestock Laborer Relationship Specialty Start Date End Date Martin Henriquez DO [address] [place] [address] PCP - General Internal Medicine 05/08/19 Talon Talbert DO [address] [place] [address] Gastroenterology 05/08/19
--- OUTSIDE RECORDS SUMMARY | 2025-07-15 12:38 | XMS_ITS | Encounter Summary ---
Author Organization [facility] Address [address] [facility] [place] [address] Care Team Providers Care Line Ordering Clinician Name Role Phone Martin Henriquez Primary Care Provider [phone] Keyon Curtis MD Unavailable Encounter Details Date Type Department Care Team (Late st Contact Info) Description 01/27/2022 Lab Requisition [facility] DermPath Lab [address] [facility] [place] [id number] Keyon Curtis MD [address] [place] [address] Social History Tobacco Use Types Packs/Day Years Used Date Smoking Tobacco: Never Smokeless Tobacco: Never Alcohol Use Standard Drinks/Week Comments Yes 0 (1 standard drink = 0.6 oz pur e alcohol) 1-2 beers or glass of wine occ Sex and Gender Information Value Date Recorded Sex Assigned at Not on file 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 Gender Identity Not on file Sexual Orientation Not on file documented as of this encounter Plan of Treatment Not on file documented as of this encounter Procedures Procedure Name Priority Date/Time Associated Diagnosis Comments DERMATOPATHOLOGY Routine 01/26/2022 3:33 AM CDT documented in this encounter Results * DERMATOPATHOLOGY (01/26/2022 3:33 AM CDT) Case Report Dermatopathology Report Case: [id number] Authorizing Provider: Keyon Curtis MD Collected: 01/26/2022 03:33 AM Ordering Location: [facility] DermPath Lab Received: 01/27/2022 11:41 AM Pathologist: Tracy Griffin MD Specimen: Skin, right ala rim 2 3:35 PM CDT DERMATOPATHOLOGY LABORATORY Final Diagnosis Specimen A. SKIN, right ala rim: BASAL CELL CARCINOMA, NODULAR TYPE (C44.311) 2 3:35 PM CDT DERMATOPATHOLOGY LABORATORY at 1534 CDT Clinical History R/O BCC 2 3:35 PM CDT DERMATOPATHOLOGY LABORATORY Gross Description Specimen A: Received is one formalin filled container labeled with the patient's name and designated right ala rim. The specimen consists of a shave biopsy measuring [id number]. Jar 0. 2 3:35 PM CDT DERMATOPATHOLOGY [...] characteristic determined by the Dermatopathology Laboratory at [facility], directed by Dr. Ryanne Gibson. These tests need not be, and therefore are not, approved by the [place] Food and Drug Administration. The tests are used for clinical purposes. Billing Codes Specimen Charges Stain Charges 16928 1 2 3:35 PM CDT DERMATOPATHOLOGY LABORATORY Embedded Images 2 3:35 PM CDT DERMATOPATHOLOGY LABORATORY Pathology/Cytolo gy TISSUE SPECIMEN FROM SKIN / Unknown 01/26/2022 3:33 AM CDT 01/27/2022 11:41 AM CDT us Keyon Curtis MD LAB - PATHOLOGY/CYTOLOGY ORD ERABLES Final Result DERMATOPATHOLOGY LABORATORY [facility] - Department of Dermatology [address], [address] Floor [place], [place] [address] [place] [address] documented in this encounter Visit Diagnoses Not on filedocumented in this encounter Care Teams Line Ordering Clinician Relationship Specialty Start Date End Date Martin Henriquez DO [address] [facility] [address] [place], [place] [id number] PCP - General 03/13/09 Keyon Curtis MD [address] [place] [address] Dermatology 04/18/24 documented as of this encounter
--- OUTSIDE RECORDS SUMMARY | 2025-07-15 12:38 | XMS_ITS | Clinical Summary ---
Author Organization [facility] Address [address] [place] [address] Care Team Providers Care Gericare Aide Teacher Name Role Phone Florence Martin Escobar DO Primary Care Provider [phone] Keyon Curtis MD Unavailable [phone] Source Comments [facility],non-owned Affiliates and Associated Physician Practices is amultiple site organization consisting of ambulatory clinics and hospital sitesin [place], [place], [place] and [place]. This disclosure is being madepursuant to the Care Everywhere program and may not contain all information available regarding this patient. Last updated 18.[facility] [employer] Allergies No known active allergies Medications * Be aware that medications may not be up to date on this document. Alwaysverify current medications with the patient. 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 Gender Identity Not on file Sexual Orientation Not on file Last Filed Vital Signs Vital Sign Reading Time Taken Comments Blood Pressure 132/88 05/11/2022 7:37 AM CDT Pulse 76 05/11/2022 7:37 AM CDT Temperature 36 C (96.8 F) 10/03/2019 8:43 AM EYE DROPPER ASSEMBLER Respiratory Rate 22 05/11/2019 10:30 AM CDT Oxygen Saturation 97% 10/03/2019 8:43 AM EYE DROPPER ASSEMBLER Inhaled Oxygen Concentration - - Weight 96.6 kg (213 lb) 05/11/2022 7:37 AM CDT Height 177.8 cm (5' 10) 05/11/2022 7:37 AM CDT Body Mass Index [...] 2008 ZOSTER VACCINE (1 of 2) 2008 DEPRESSION SCREENING 08/22/2024 COVID-19 VACCINE (1 - 2024-2 6 season) 2025 INFLUENZA VACCINE (#1) 2025 05/27/2019 Respiratory Syncytial Virus (RSV) Vaccine Pt: or [...] on patient's age to complete this topic Insurance [employer] Care Teams Gericare Aide Teacher Relationship Specialty Start Date End Date Martin Henriquez DO [address] [facility] [address] [place], [place] [id number] PCP - General 03/13/09 Keyon Curtis MD [address] [facility] [place] [address] Dermatology 04/18/24
--- OUTSIDE RECORDS SUMMARY | 2025-07-15 12:38 | XMS_ITS | Encounter Summary ---
Author Organization [facility] Address [address] [facility] [place] [address] Care Team Providers Care Biosecurity Officer Name Role Phone Martin Henriquez Primary Care Provider [phone] Keyon Curtis MD Unavailable [phone] Encounter Details Date Type Department Care Team (Late st Contact Info) Description 04/11/2024 Lab Requisition [facility] - DermPath Lab [address] [facility] [place] [phone] Keyon Curtis MD [address] [place] [address] Social History Tobacco Use Types Packs/Day Years Used Date Smoking Tobacco: Never Smokeless Tobacco: Never Alcohol Use Standard Drinks/Week Comments Yes 0 (1 standard drink = 0.6 oz pur e alcohol) 1-2 beers or glass of wine occ Sex and Gender Information Value Date Recorded Sex Assigned at Not on file 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 Gender Identity Not on file Sexual Orientation Not on file documented as of this encounter Plan of Treatment Not on file documented as of this encounter Procedures Procedure Name Priority Date/Time Associated Diagnosis Comments DERMATOPATHOLOGY Routine 04/10/2024 3:33 AM CDT documented in this encounter Results * DERMATOPATHOLOGY (04/10/2024 3:33 AM CDT) Case Report Dermatopathology Report Case: [id number] Authorizing Provider: Keyon Curtis MD Collected: 04/10/2024 03:33 AM Ordering Location: [facility] - Received: 04/11/2024 01:55 PM DermPath Lab Pathologist: Misael Gibson MD Specimen: Skin, right ala 2:07 PM CDT DERMATOPATHOLOGY LABORATORY Final Diagnosis Specimen A. SKIN, right ala: BASAL CELL CARCINOMA (C44.311) (see microscopic description and comment) 2:07 PM CDT DERMATOPATHOLOGY LABORATORY at 1407 CDT Clinical History R/O BCC recurrence 2:07 PM [...] purposes. Billing Codes Specimen Charges Stain Charges 59262 1 4 2:07 PM CDT DERMATOPATHOLOGY LABORATORY Embedded Images 2:07 PM CDT DERMATOPATHOLOGY LABORATORY Pathology/Cytolo gy TISSUE SPECIMEN FROM SKIN / Unknown 04/10/2024 3:33 AM CDT 04/11/2024 1:55 PM CDT Keyon Curtis MD LAB - PATHOLOGY/CYTOLOGY ORD ERABLES Final Result DERMATOPATHOLOGY LABORATORY [facility] - Department of Dermatology [facility] [address] [place] [address], [address] [phone] documented in this encounter Visit Diagnoses Not on filedocumented in this encounter Care Teams Biosecurity Officer Relationship Specialty Start Date End Date Martin Henriquez DO [address] [facility] [address] [place], [place] [phone] PCP - General 03/13/09 Keyon Curtis MD [address] [facility] [place] [address] Dermatology 04/18/24 documented as of this encounter
--- OUTSIDE RECORDS SUMMARY | 2025-07-15 12:38 | XMS_ITS | Clinical Summary ---
Author Organization [facility] Address [address] [place] [address] Care Team Providers Care Home Office Claim Specialist Name Role Phone Mario Donnelly DO Primary Care Provider [phone] Allergies No known active allergies Medications valsartan (DIOVAN) 320 mg tablet Take 1 tablet (320 mg total) by mouth daily 01/07/2025 Active Active Problems Problem Noted Date Diagnosed Date Vitreous syneresis of both eyes 02/04/2025 Assessment & Plan (02/04/2025 2:22 PM CDT): Seeking a 2nd opinion regarding the possibility of macular degeneration. Fortunately I see no evidence for such conditions at this time. OCT testing demonstrates a normal macular appearance. He does have some vitreous syneresis, has noted floaters for quite some time, fortunately no tear or detachment the retina appeared recommend observation. I have encouraged him to follow up with his regular eye doctors, I am happy to see him here should things worsen in any way. Sensorineural hearing loss (SNHL) of both ears 0 05/19/2022 Surgical History Surgery Date Site/Laterality Comments CARPAL TUNNEL RELEASE 2019 WRIST ARTHROSCOPY 08/22/1980 - 08/21/1981 Family History Medical History Relation Name Comments No Known Problems Brother No Known Problems Father No Known Problems Mother No Known Problems Sister Relation Name Status Comments Brother Father Mother Sister Social History Tobacco Use Types Packs/Day Years Used Date Smoking Tobacco: Never Passive Smoke Exposure: Never Smokeless Tobacco: Never Tobacco Cessation:Counseling Given: Not Answered Sex and Gender Information Value Date Recorded Sex Assigned at Not on file Legal Sex Male 4:46 AM MOBILE ENGINEER Gender Identity Not on file Sexual Orientation Not on file Last Filed Vital Signs Vital Sign Reading Time Taken Comments Blood Pressure - - Pulse - - Temperature - - Respiratory Rate - - Oxygen Saturation - - Inhaled Oxygen Concentration - - Weight 88 kg (194 lb 0.1 oz) 09/21/2017 11:14 AM MOBILE ENGINEER Height 177.8 cm (5' 10) 09/21/2017 11:14 AM MOBILE ENGINEER Body Mass Index 27.84 09/21/2017 11:14 AM MOBILE ENGINEER Plan of Treatment Health Maintenance Due Date Last Done Comments Colon Cancer Screening-Colonoscopy 1958 Depression Screening 1958 Fall Risk Assessment 1958 Hepatitis C Screening 1958 Prostate Cancer Screening-PSA 1958 DTaP/Tdap/Td Vaccine (1 - Tdap) 1969 Hepatitis B Screening 1976 Pneumococcal vaccine 65+ (1 of 1 - PCV) 2008 Zoster Vaccine (2 of 2) 07/30/2020 06/04/2020 Well Visit 65+ 2023 Influenza Vaccine (#1) 2025 06/04/2020, 2018 Insurance REPLACED BY [facility] [employer] MEDICARE Care Teams Home Office Claim Specialist Relationship Specialty Start Date End Date Mario Donnelly DO PCP - General Internal Medicine 12/19/24
[2025-07-15 15:29] LABS: Hemoglobin A1C 6.0 % (<5.7)
== END 2025-07-15 10:41 | disposition home or self-care (01) ==
PROVIDERS: PCP Internal Medicine; Visit Provider Internal Medicine
DX: E78.5 Hyperlipidemia, unspecified (principal); R73.9 Hyperglycemia, unspecified; I10 Essential (primary) hypertension; Z12.5 Encounter for screening for malignant neoplasm of prostate
CPT/HCPCS: 36415; 80053; 80061; 83036; 84153; 85025; G0103